=== PATIENT | female | born 1995 | race Caucasian/White ===

== ENCOUNTER 2017-06-12 08:47 | Emergency (ER) | payer OTHER ==
[~2017-06-12] VITALS: Ht 165.1 cm; Wt 65.0 kg
[2017-06-12 08:53] VITALS: BP 116/71; PULSE 76; RESP 16; TEMP 98.3; O2SAT 96
[2017-06-12 09:20] VITALS: BP 116/71; PULSE 70; RESP 16; TEMP 98.3; O2SAT 100
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
[2017-06-12] MEDS ORDERED: BACL10TA PO (10:06)
[2017-06-12] MEDS ORDERED: IBUP1TAB7 PO (10:06)
== END 2017-06-12 10:15 | disposition home or self-care (01) ==
LOC: NEPD 08:47
DX: S16.1XXA Strain of muscle, fascia and tendon at neck level, initial encounter (principal); S29.012A Strain of muscle and tendon of back wall of thorax, initial encounter; V43.52XA Car driver injured in collision with other type car in traffic accident, initial encounter; Y92.410 Unspecified street and highway as the place of occurrence of the external cause; M41.9 Scoliosis, unspecified; J45.909 Unspecified asthma, uncomplicated
CPT/HCPCS: 72072; 72125; 84703; 99284

== ENCOUNTER → 2017-10-22 | Outpatient (CLI) | payer MEDICAID ==
[~2017-10-22] MED LIST: BACL10TA PO; CEPH-460 PO; IBUP1TAB7 PO
== END ==
LOC: HPND 11:53
PROVIDERS: ATTEND Obstetrics & Gynecology
DX: O35.1XX0 Maternal care for (suspected) chromosomal abnormality in fetus, not applicable or unspecified (principal)
CPT/HCPCS: 76811; 76825; 76827; 93325

== ENCOUNTER 2017-11-04 10:47 | Emergency (ER) | payer SELFPAY ==
--- NOTE | 2017-11-04 11:44 | PD ---
HPI Chief Complaint Abdominal pressure, urinary frequency Date Seen: Nov 04, 2017 Time Seen: 11:15 Travel History International Travel<30 Days: No Contact w/Intl Traveler<30Days: No Known Affected Area: No History of Present Illness HPI Patient is a 22-year-old female at 23/6 is presenting to the OB ED for lower abdominal pressure and urinary frequency. Lower abdominal pressure has been present for the last several weeks has been worsening of late. Urinary frequency has been present for the last 2-3 days. She states that she feels that she needs to urinate frequently but often has little output. Denies dysuria, hematuria, malodorous urine. Otherwise denies leakage of fluid, vaginal bleeding, decreased movement, contractions, fever, chills, back pain, trauma. Of note she does feel that she may have strained a muscle in her lower abdomen over the weekend lifting groceries. History Past Medical History Medical History: Denies Significant Hx Obstetric History Obstetric History First resulted in a due to breech presentation Also had gestational diabetes during her first , has not been checked this Of note, patient is followed by OB diagnostics as a detected a heart defect. Plans to deliver at [facility] Past Surgical History Narrative Surgical Prior , cholecystectomy, questionable ovarian cyst removal Family History Narrative Family History Family history of cancer Both grandparents have hypertension, diabetes Social History Narrative Social History Works as a medical device sales Lives at home with and 3-year-old daughter No alcohol, tobacco, illicit drug use Allergies-Medications (Allergen,Severity, Reaction): Coded Allergies: No Known Allergies (Unverified , 06/26/17) Home Meds Active Scripts Fosfomycin Packet (Monurol Packet) 3 Gm Powderpack, 3 GM PO ONCE, #1 PACKET Prov:Kevyn Hamlin MD R1 11/04/17 Cephalexin (Keflex) 500 Mg Cap, 500 MG PO Q12H for Infection for 7 Days, #14 CAP 0 Refills Prov:Tony Suazo DO 06/26/17 Baclofen (Baclofen) 10 Mg Tab, 10 MG PO Q8HR for 10 Days, TAB 0 Refills Prov:Ammon Harris MD 06/12/17 Ibuprofen (Ibuprofen) 800 Mg Tab, 800 MG PO Q6HR Y for PAIN, #40 TAB 0 Refills Prov:Ammon Harris MD 06/12/17 Review of Systems Except as stated in HPI: all other systems reviewed are Neg Physical Exam Narrative GENERAL: Well-nourished, well-developed patient. SKIN: Warm and dry. HEAD: Normocephalic and atraumatic. EYES: No scleral icterus. No injection or drainage. ENT: No nasal drainage noted. Mucous membranes pink. Airway patent. NECK: Supple, trachea midline. No JVD. CARDIOVASCULAR: Regular rate and rhythm without murmurs, gallops, or rubs. RESPIRATORY: Breath sounds equal bilaterally. No accessory muscle use. BREASTS: Bilateral exam showed no masses , no retractions, no nipple discharge. ABDOMEN/GI: Abdomen soft, non-tender, bowel sounds present, no rebound, no guarding Gravid to 23 weeks size GENITOURINARY: External Genitalia: intact and normal in appearance Cervix: Posterior Dilatation: 0 Effacement: 0 Station: -3 Presentation: unknown Membranes: intact Uterine Contractions: none FHT's: Category: 1 Baseline: 145 Reactive: y Variability: moderate Decels: none EXTREMITIES: No cyanosis or edema. BACK: Nontender without obvious deformity. No CVA tenderness. NEUROLOGICAL: Awake and alert. Motor and sensory grossly within normal limits. Five out of 5 muscle strength in all muscle groups. Normal speech. Data Data Orders Orders Vital Signs (Adult) .ON ADMISSION (11/04/17 11:35) ^ Labor Status (11/04/17 11:35) Heart (11/04/17 11:35) Urinalysis - C+S If Indicated (11/04/17 11:35) ^ Non Stress Test (11/04/17 11:35) ^ Hydration (11/04/17 11:35) Diet Regular Basic (11/04/17 Lunch) MDM Plan 22 yo at 23/6 presenting to OB ED for abdominal pressure and urinary frequency. -FHT reassuring, no contractions noted -UA with large leukocyte esterase, small mucous, small bacteria -Will treat with Monurol given symptoms -Encourage PO hydration SDW Dr. Blackwell Diagnosis Diagnosis: Primary Impression: Urinary frequency Additional Impressions: Pelvic pressure in 24 weeks gestation of Disposition: DISCHARGE HOME Condition: Stable Scripts Fosfomycin Packet (Monurol Packet) 3 Gm Powderpack 3 GM PO ONCE, #1 PACKET Prov: Kevyn Hamlin MD R1 11/04/17 Kevyn Hamlin MD R1 Nov 04, 2017 11:44
[2017-11-04] MEDS ORDERED: MONUPAK PO (12:08)
[2017-11-04 12:09] LABS: BACTERIA, URINE FEW /hpf; BILIRUBIN, URINE NEG (NEG); BLOOD, URINE NEG (NEG); GLUCOSE,URINE NEG (NEG); KETONE, URINE NEG (NEG); MUCUS URINE FEW /lpf (OCC); NITRITE,URINE NEG (NEG); PH, URINE 6.5 (5.0-8.5); SQUAMOUS EPITHELIAL CELL URINE 18 /hpf (0-5); URINE COLOR YELLOW (YELLW/STRAW); URINE LEUKOCYTE ESTERASE LARGE (NEG)
== END 2017-11-04 12:25 | disposition home or self-care (01) ==
LOC: HOBED 10:47
DX: O99.89 Other specified diseases and conditions complicating pregnancy, childbirth and the puerperium (principal); R35.0 Frequency of micturition; R10.2 Pelvic and perineal pain; Z3A.24 24 weeks gestation of pregnancy
CPT/HCPCS: 81001; 99284

== ENCOUNTER → 2017-11-05 | Outpatient (CLI) | payer MEDICAID ==
[~2017-11-05] MED LIST changes: +MONUPAK PO
== END ==
LOC: HPND 12:20
PROVIDERS: ATTEND Obstetrics & Gynecology
DX: O35.8XX0 Maternal care for other (suspected) fetal abnormality and damage, not applicable or unspecified (principal)
CPT/HCPCS: 76815

== ENCOUNTER → 2017-11-19 | Outpatient (CLI) | payer MEDICAID | LOC: HPND 12:31 | PROVIDERS: ATTEND Obstetrics & Gynecology | DX: O35.8XX0 Maternal care for other (suspected) fetal abnormality and damage, not applicable or unspecified (principal) | CPT/HCPCS: 76816 ==